=== PATIENT | female | born 1990 | race Caucasian/White ===

== ENCOUNTER 2018-01-03 02:03 | Emergency (ER) | payer MEDICAID, SELFPAY ==
[2018-01-03 02:06] VITALS: BP 157/98; PULSE 92; RESP 16; TEMP 36.7; O2SAT 99
--- NOTE | 2018-01-03 02:15 | ED.GENADUL ---
Disposition Clinical Impression: Traumatic rupture of right ear drum, initial encounter Disposition: HOME Condition: Stable Instructions: Ruptured Eardrum (ED) Additional Instructions: you can take 1000mg tylenol and 600mg ibuprofen every 6 hours for pain as needed follow up with your primary care provider within a week Medical Decision Making - Medical Decision Making Pt here with small right tm rupture likely from blowing nose. She has no findings to suggest underlying infection. ADvised nsaids and tylenol and f/u with pcp and return precautions given - Differential Diagnosis tm rupture, aom, otitis externa History of Present Illness - General Chief complaint: EarProblem Stated complaint: JAW/EAR PAIN Time Seen by Provider: 01/03/18 02:09 Source: patient Mode of arrival: ambulatory Limitations: no limitations - History of Present Illness Initial comments: 27 yo female comes in with right ear pain fora few hours. She states for a day or two she has has clear rhinorrhea and slight dry cough. She states she has been blowing her nose and felt pain in her ears when doing this earlier but then specifically had pain in her right ear. SHe denies swimming or fevers. She has not taken any meds for the pain due to not having meds at home. She has a small tm rupture at the 3 oclock position Complaint: right ear pain Onset/Timin -: hour(s) Improves with: none Worsens with: none - Related Data Levonorgestrel-Ethin Estradiol [Jolessa 0.15 mg-0.03 mg Tablet] 1 cap PO DAILY 05/21/14 Polyethylene Glycol 3350 [Miralax] 17 gm PO DAILY PRN #1 btl 05/21/14 Lisinopril 1 tab PO DAILY 03/28/15 Spironolactone 25 mg PO DAILY 01/03/18 Allergies Allergy/AdvReac Type Severity Reaction Status Date / Time No Known Allergies Allergy Unverified 01/03/18 02:11 Review of Systems Constitutional: denies: chills, fever ENT: ear pain. denies: throat pain Respiratory: denies: shortness of breath Cardiovascular: denies: chest pain Gastrointestinal: denies: abdominal pain, nausea, vomiting Musculoskeletal: denies: back pain Skin: denies: rash Neurological: denies: headache Comment: All other systems reviewed and negative Past Medical History - Past Medical History Medical history: hypertension - Social History Alcohol use: none Drug use: none General Exam - General Limitations: no limitations General appearance: alert, in no apparent distress - Head Head exam: Present: atraumatic - Eye Eye exam: Present: normal apperance, PERRL - ENT ENT exam: Present: normal orophraynx, mucous membranes moist, normal external ear exam, other (see hpi) - Neck Neck exam: Present: normal inspection - Respiratory Respiratory exam: Absent: respiratory distress - Cardiovascular Cardiovascular Exam: Present: regular rate - Extremities Exam Extremities exam: Present: normal inspection. Absent: pedal edema - Neurological Exam Neurological exam: Present: alert, oriented X3 - Psychiatric Psychiatric exam: Present: normal affect Course Vital Signs - 24 hr 01/03/18 02:06 Temperature 98.1 F Pulse 92 H Respiratory 16 Rate Blood Pressure 157/98 Pulse Oximetry 99
[2018-01-03] MEDS: Ibuprofen 600 MG TAB PO (02:19)
[2018-01-03] MEDS: Acetaminophen 500 MG TAB 1000 MG PO (02:19)
== END 2018-01-03 02:22 | disposition home or self-care (01) ==
PROVIDERS: Emergency Provider Emergency Medicine; PCP Internal Medicine
DX: S09.21XA Traumatic rupture of right ear drum, initial encounter (principal); X50.9XXA Other and unspecified overexertion or strenuous movements or postures, initial encounter; I10 Essential (primary) hypertension
CPT/HCPCS: 99282

== ENCOUNTER 2018-03-19 15:09 | Outpatient (REF) | payer MEDICAID, SELFPAY ==
[2018-03-19 21:10] LABS: Iron 74 ug/dL (50-175); Total Iron Binding Capacity 382 ug/dL (250-450); Transferrin Sat 19 % (15-50)
[2018-03-19 21:22] LABS: Ferritin 85 ng/mL (8-388); TSH (W/Ref FT4) 1.56 uIU/mL (0.358-3.74)
[2018-03-19 21:58] LABS: Abs Immature Grans 0.05 k/cumm (0.0-0.09); Absolute Basophil Count 0.05 k/cumm (0.0-0.2); Absolute Eosinophil Count 0.44 k/cumm (0.0-0.7); Absolute Lymphocyte Count 2.68 k/cumm (1.2-3.4); Absolute Monocyte Count 0.59 k/cumm (0.11-0.7); Absolute Neutrophil Count 8.47 k/cumm (1.2-6.7); Basophils % 0.4; Eosinophils % 3.6; HCT 43.2 % (36.0-46.0); HGB 14.6 g/dL (12.0-15.5); Immature Grans % 0.4; Lymphocytes % 21.8; Mean Corp. HGB Concentration 33.8 g/dL (32.0-36.0); Mean Corpuscular Hemoglobin 31.3 pg (27.0-33.0); Mean Corpuscular Volume 92.7 fL (80-95); Mean Platelet Volume 9.3 fL (8.0-11.0); Monocytes % 4.8; Platelet Count 317 x1000/uL (130-400); RBC 4.66 m/cumm (4.00-5.20); RBC Distribution Width 12.4 % (11.7-14.6); White Blood Cell Count 12.28 k/cumm (4.4-10.8)
== END 2018-03-19 15:29 ==
LOC: NCHCN 15:09
PROVIDERS: PCP Internal Medicine; Visit Provider Nurse Practitioner
DX: R53.83 Other fatigue (principal)
CPT/HCPCS: 82728; 83540; 83550; 84443; 85025

== ENCOUNTER 2018-11-19 09:49 | Outpatient (REF) | payer MEDICAID, SELFPAY ==
[2018-11-19 12:01] LABS: Anion Gap 12.4 mmol/L (3-11); BUN 7 mg/dL (7-18); CO2 23.6 mmol/L (21.0-32.0); CREATININE 0.77 mg/dL (0.55-1.02); Calcium 8.8 mg/dL (8.5-10.1); Chloride 106 mmol/L (98-107); Glucose 75 mg/dL (70-100); Potassium 4.1 mmol/L (3.5-5.1); Sodium 142 mmol/L (136-145)
== END 2018-11-19 10:09 ==
LOC: NCHCN 09:49
PROVIDERS: PCP Internal Medicine; Visit Provider Internal Medicine
DX: I10 Essential (primary) hypertension (principal)
CPT/HCPCS: 80048

== ENCOUNTER 2019-03-23 01:51 | Emergency (ER) | payer MEDICAID, SELFPAY ==
[2019-03-23 02:03] VITALS: BP 148/94; PULSE 95; RESP 18; TEMP 36.8; O2SAT 98
--- NOTE | 2019-03-23 02:08 | ED.GENADUL_ITS ---
Discharge Plan Disposition Patient Disposition: HOME Condition: Good Discharge Details Chief Complaint: RashLesion Clinical Impression: Contact dermatitis and eczema Primary Care Provider: Misael Rowell ED Provider: Hank Hernandez Home Meds and New Rx's Prescriptions: New hydrocortisone 1 % cream 1 applic TP TID PRN (Reason: rash) Qty: 14.2 RF: 0 No Action levonorgestrel-ethinyl estrad [Jolessa] 1 EACH tablets,dose pack,3 month 1 cap PO DAILY RF: 0 polyethylene glycol 3350 527 GM powder 17 gm PO DAILY PRN (Reason: Constipation) Qty: 1 RF: 0 lisinopril 10 MG tablet 1 tab PO DAILY RF: 0 spironolactone 25 MG tablet 25 mg PO DAILY RF: 0 Discharge Instructions Instructions: Dermatitis (ED) Additional Instructions: You have a reaction on your skin secondary to them being chronically sweaty in your gloves. Please make sure that for the next 1 to 2 weeks you are not wearing any significant tight fitting or sweaty gloves. Please apply the hydrocortisone cream 3 times daily to the affected areas, in between these dosings make sure to keep your hands well moisturized. If your symptoms do not improve with this treatment please follow-up closely with your primary care provider for potential additional medication management. If you notice any worsening of your symptoms, or any new symptoms such as vomiting, diarrhea, fever, chills, shortness of breath, chest pain, numbness, weakness, or fainting , please return immediately to the emergency department for reevaluation. Please follow up with your primary care provider as soon as possible for reassessment and reevaluation. As always, it was a pleasure participating in your medical care today. Stand Alone Forms: Work Release Referrals: Misael Rowell MD [Primary Care Provider] - Medical Decision Making This is a pleasant 28-year-old female who presents for rash on her hands bilaterally. She works at [employer] and always wears tightfitting gloves which she often profusely sweats and. Over the last few weeks she has noticed well- demarcated erythematous scaly pruritic rash, PCP recommended moisturizer which she has been using which slightly improved her symptoms but now over the last week they have been slightly worsening. Exam demonstrates eczematous-like contact dermatitis rash over the hands, no other lesions, no other locations. No oral lesions. Signs and symptoms appear consistent for an eczematous-like dermatitis. Likely secondary to her working scenario. In addition to moisturizer we will recommend topical steroid 1% hydrocortisone cream 3 times daily, continue moisturizer, as well as a work note for the next 2 weeks to avoid any tight fitting gloves which causes continued sweating. I have extensively reviewed the treatment plan and discharge instructions with the patient. I have addressed all patient concerns at this time. The patient was made aware of what symptoms to monitor for that would warrant a return to the emergency department. Discussed the plan with the patient, they demonstrate verbal understanding and agreement with our assessment and plan at this time. HPI General Date/Time Provider Initiated Documentation: 03/23/19 01:56 . HPI Narrative: This is a pleasant 28-year-old female who presents today for evaluation of rash on her hands. She works at [employer], and wears gloves every day. About 2 weeks ago she noticed small rash on her hands, she was seen by primary care provider who recommended moisturizing ointment. She has been applying this and has noticed some improvement, however over the last week her symptoms have continued and actually slightly worsened. She describes lesions on her hands is notably pruritic. The gloves that she is using are latex free nitrile based. She denies any using any new soaps or lotions. She denies any oral lesions or lesions anywhere else aside for her hands where her gloves are. She has no other complaints at this time. No other modifying factors. Related Data Home Medications Medication Instructions Recorded Confirmed levonorgestrel-ethinyl estrad 1 cap PO DAILY 05/21/14 01/03/18 [Johannaha] polyethylene glycol 3350 17 gm PO DAILY PRN #1 btl 05/21/14 01/03/18 lisinopril 1 tab PO DAILY 03/28/15 01/03/18 spironolactone 25 mg PO DAILY 01/03/18 01/03/18 hydrocortisone 1 applic TP TID PRN #14.2 gm 03/23/19 Previous Rx's Medication Instructions Recorded polyethylene glycol 3350 17 gm PO DAILY PRN #1 btl 05/21/14 hydrocortisone 1 applic TP TID PRN #14.2 gm 03/23/19 Allergies Allergy/AdvReac Type Severity Reaction Status Date / Time adhesive Allergy Mild Skin Rash Unverified 03/23/19 02:11 Review of Systems All systems reviewed & are unremarkable except as noted in HPI and below PFSH Social History Smoking/Tobacco Use Status: Former Tobacco Use Drug use: Never Do you feel safe in your relationship?: Yes Exam Narrative Exam Narrative: 1.Const: Well-nourished, Well-developed, appearing stated age 2.Eyes: PERRL, no conjunctival injection, and symmetrical lids. 3.ENT: Atraumatic external nose and ears. Moist MM. Neck: Symmetric, trachea midline, No thyromegaly. 4.CVS: +S1/S2, No murmurs or gallops. Peripheral pulses 2+ and equal in all extremities. Brisk capillary refill in all extremities. 5.RESP: Unlabored respiratory effort. Clear to auscultation bilaterally. No wheezes rales or rhonchi 6.GI: Soft, Nontender/Nondistended, No hepatosplenomegaly. No guarding or rebound. 7.MSK: Normocephalic/Atraumatic, Extremities w/o deformity or ttp No cyanosis or clubbing, Normal movement of all extremities 8.Skin: Warm, Dry. Bilateral hands in the region where her gloves are demonstrate small erythematous, dry, slightly flaky lesions that are well demarcated, slightly raised, patch-like. No bleeding. Negative Nikolsky sign. Signs and symptoms appear consistent with eczematous-like contact dermatitis. Negative Nikolsky sign. No large vesicles or bulla. No palpable purpura. No oral lesions. No mucosal lesions. No evidence of severe cellulitis. No evidence of vaccine preventable rash. 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 Sensation grossly intact, no focal neurologic deficits. 10.Psych: (AAO) x3. Appropriate mood and affect
== END 2019-03-23 02:15 | disposition home or self-care (01) ==
LOC: ER 02:17
PROVIDERS: Emergency Provider Student in an Organized Health Care Education/Training Program; PCP Internal Medicine
DX: L25.9 Unspecified contact dermatitis, unspecified cause (principal)
CPT/HCPCS: 99283

== ENCOUNTER 2020-10-19 09:38 | Outpatient (REF) | payer MEDICAID, SELFPAY ==
[2020-10-19 12:51] LABS: BUN 10 mg/dL (7-18); CREATININE 0.9 mg/dL (0.55-1.02); Calcium 8.8 mg/dL (8.5-10.1); Chloride 105 mmol/L (98-107); Glucose 75 mg/dL (74-106); Potassium 3.8 mmol/L (3.5-5.1); Sodium 142 mmol/L (136-145)
== END 2020-10-19 09:39 | disposition home or self-care (01) ==
LOC: NCHCN 09:38
PROVIDERS: PCP Internal Medicine; Visit Provider Internal Medicine
DX: I10 Essential (primary) hypertension (principal); F41.8 Other specified anxiety disorders
CPT/HCPCS: 80048

== ENCOUNTER 2021-07-08 06:15 | Emergency (ER) | payer MEDICAID, SELFPAY | END 2021-07-08 07:36 | disposition home or self-care (01) | PROVIDERS: Emergency Provider Emergency Medicine; PCP Internal Medicine | DX: K08.89 Other specified disorders of teeth and supporting structures (principal) | CPT/HCPCS: 99283 ==

== ENCOUNTER 2021-12-06 17:20 | Emergency (ER) | payer MEDICAID, SELFPAY ==
[2021-12-06] VITALS (18 sets, daily range): BP systolic 144–183; BP diastolic 81–110; PULSE 80–96; RESP 16–18; TEMP 36.6–37.2; O2SAT 95–99
[2021-12-06 18:44] LABS: Abs Immature Grans 0.04 10^3/uL (0.0-0.06); Absolute Basophil Count 0.05 10^3/uL (0.0-0.2); Absolute Eosinophil Count 0.12 10^3/uL (0.0-0.7); Absolute Lymphocyte Count 4.05 10^3/uL (1.2-3.4); Absolute Monocyte Count 0.58 10^3/uL (0.1-0.8); Basophils % 0.4; HCT 43.1 % (36.0-46.0); Immature Grans % 0.3; Lymphocytes % 34.1; MCH 31.8 pg (27.0-33.0); MCHC 34.8 % (32.0-36.0); MCV 92 fL (80-95); Monocytes % 4.9; Neutrophils % 59.3; Platelet Count 343 10^3/uL (130-400); RBC 4.71 10^6/uL (3.93-5.22); RDW 11.8 % (11.7-14.6); RDW-SD 39.6 fL; WBC 11.87 10^3/uL (4.4-10.8)
[2021-12-06 18:45] LABS: Absolute Neutrophil Count 7.04 10^3/uL (1.2-6.7)
[2021-12-06 18:58] LABS: INR 1.2 (0.9-1.1); PTT Activated 30.2 sec (21.0-27.5); Prothrombin Time 11.8 sec (9.3-11.0)
[2021-12-06 19:00] LABS: ALT 29 U/L (14-59); AST 24 U/L (15-37); Albumin 3.6 g/dL (3.4-5.0); Alkaline Phosphatase 81 U/L (46-116); BUN 10 mg/dL (7-18); Bilirubin, Total 0.4 mg/dL (0.2-1.0); Calcium 9.2 mg/dL (8.5-10.1); Chloride 104 mmol/L (98-107); Glucose 115 mg/dL (74-106); Potassium 3.3 mmol/L (3.5-5.1); Sodium 139 mmol/L (136-145); Total Protein 7.4 g/dL (6.4-8.2)
[2021-12-06] MEDS: Potassium Chloride 20 MEQ TABCR PO (19:21)
--- NOTE | 2021-12-06 19:40 | ED.GENADUL_ITS ---
Discharge Plan Disposition Patient Disposition: HOME Condition: Stable Discharge Details Clinical Impression: Rash, Tongue lesion, Cough, Hypertension, Hypokalemia Primary Care Provider: Misael Rowell ED Provider: Bobo Jeffers Home Meds and New Rx's Prescriptions: Continued levonorgestrel-ethinyl estrad [Jolessa] 1 EACH tablets,dose pack,3 month 1 cap PO DAILY polyethylene glycol 3350 527 GM powder 17 gm PO DAILY PRN (Reason: Constipation) Qty: 1 0RF lisinopril 10 MG tablet 1 tab PO DAILY spironolactone 25 MG tablet 25 mg PO DAILY hydrocortisone 1 % cream 1 applic TP TID PRN (Reason: rash) Qty: 14.2 0RF bupropion HCl 300 mg tablet extended release 24 hr 300 mg PO DAILY Label Comments: TAKE 1 TABLET BY MOUTH DAILY Discontinued amoxicillin 500 mg tablet 500 mg PO BID Qty: 20 0RF Discharge Instructions Instructions: Acute Rash (ED) Additional Instructions: Please monitor your tongue lesion and have your primary care physician reassess this. If this lesion does not improve over the next week, additional diagnostic testing may be necessary. Your potassium today was slightly below normal. You were given potassium supplement K-dur 20meq. Please be sure to discuss this with your doctor. Please use sensitive skin detergents and soaps and avoid fragrances. Take Benadryl 25-50mg every 8 hours as needed for itchy rash over the next 3 days. Follow-up with your primary care physician as scheduled tomorrow. A COVID test was performed today out of an abundance of precaution and result is pending at time of discharge. Your blood pressure was elevated today. You acknowledge difficulty maintaining compliance with antihypertensive medication due to difficulty with refill prescription. Please discuss this with your doctor and be sure to take medication as prescribed. Return to the ER immediately for any worsening or new concerning symptoms. Referrals: Abiodun Jama MD [ [facility] STAFF PHYSICIAN] - Discharge Data Discharge Date/Time-TO BE ENTERED AT DEPARTURE: 12/06/21 20:02 Medical Decision Making 31-year-old female presents today with itchy, blotchy rash on her shoulders, upper chest and upper extremities as well as new tongue lesion since last night, recent dry cough. Patient is hypertensive likely secondary to noncompliance with lisinopril. She is saturating well in no respiratory distress with clear lungs. Airway intact and no oropharyngeal edema. Screening labs reviewed and mild leukocytosis noted. Patient has mild elevation of coags. Normal LFTs. Potassium is low at 3.3. Potassium chloride 20 mill equivalents p.o. was given. Concern for likely viral illness. I think COVID is unlikely given symptomatology but will send COVID testing. All results were discussed with the patient. On reassessment rash had resolved and patient was feeling better. Plan will be for discharge with outpatient follow-up. Usual customary discharge instructions were reviewed with the patient. Patient was advised to monitor her tongue lesion and if it does not improve over the next 1 week encouraged to discuss with her primary care physician for additional testing. HPI General Mode of arrival: ambulatory . Date/Time Provider Initiated Documentation: 12/06/21 17:37 . Limitations to Documentation: no limitations . Information obtained by: patient . HPI Narrative: 31-year-old female with history of anxiety, depression, hypertension presents today with chief complaint of rash. Patient notes itchy, blotchy rash on her shoulders, upper chest and upper extremities. Rash is moderate. No modifiers. Patient took Benadryl 50 mg at 1640. Patient denies known allergen or new exposure. Patient also notes new tongue lesion since last night, recent dry cough. Related Data Home Medications Medication Instructions Recorded Confirmed levonorgestrel 0.15 mg-ethinyl 1 cap PO DAILY 05/21/14 12/06/21 estradiol 30 mcg tablets,3 mos pack(91) (Charmaine) polyethylene glycol 3350 17 17 gm PO DAILY PRN Constipation ##1 05/21/14 12/06/21 gram/dose oral powder lisinopril 10 mg tablet 1 tab PO DAILY 03/28/15 12/06/21 spironolactone 25 mg tablet 25 mg PO DAILY 01/03/18 12/06/21 hydrocortisone 1 % topical cream 1 applic topical TID PRN rash 03/23/19 12/06/21 #14.2 grams bupropion HCl 300 mg 24 hr tablet, 300 mg PO DAILY 12/06/21 12/06/21 extended release Previous Rx's Medication Instructions Recorded polyethylene glycol 3350 17 17 gm PO DAILY PRN Constipation ##1 05/21/14 gram/dose oral powder hydrocortisone 1 % topical cream 1 applic topical TID PRN rash 03/23/19 #14.2 grams Allergies Allergy/AdvReac Type Severity Reaction Status Date / Time adhesive Allergy Mild Skin Rash Unverified 12/06/21 17:32 General Stated Complaint: Allergic MAYUR: 3 Review of Systems Constitutional Constitutional: Denies fever(s) ENT Ears, Nose, Mouth, and Throat: Reports as per HPI Integumentary/Breasts Skin/Breast: Reports as per HPI PFSH All Active Problems Rash (Acute) Tongue lesion (Acute) Cough (Acute) Hypertension (Chronic) Hypokalemia (Acute) Social History Smoking/Tobacco Use Status: Former Tobacco Use Smoking risk assessment performed?: Yes Alcohol Intake: current Alcohol Intake frequency: holidays/special occasions only Drug use: Occasionally Substance use type: marijuana Do you feel safe at home: Yes Do you feel safe in your relationship?: Yes Exam Const General: cooperative and no acute distress HENMT Mouth: moist mucous membranes Other: Tip of the tongue on the left has a small 1cm raised mucosal lesion Eyes Conjunctivae: normal conjunctivae Sclera: normal sclerae Neck Neck: trachea midline and supple Resp Auscultation: clear to auscultation bilaterally, no rales, no rhonchi and no wheezes Cardio Rate: regular rate and not tachycardic Rhythm: regular rhythm GI Palpation: soft, not firm, no guarding, no masses, not rigid and nontender Skin Rashes: rashes noted (Blotchy red rash on shoulders, upper chest and upper extremities) Neuro General: patient alert, patient awake and tone normal Extrem General: no edema Psych Appearance: grossly normal Mental Status: mental status grossly normal Speech and Movement: speech and movement normal Course Vital Signs Vital signs: Vital Signs Temperature 36.6 C 12/06/21 17:27 Pulse 94 H 12/06/21 17:27 Respiratory Rate 18 12/06/21 17:27 Blood Pressure 183/110 H 12/06/21 17:27 Pulse Oximetry 98 12/06/21 17:27 Temperature 37.2 C 12/06/21 18:04 Temperature Source Oral 12/06/21 18:04 Pulse 81 12/06/21 18:31 Respiratory Rate 16 12/06/21 18:04 Respiratory Effort Non-Labored 12/06/21 17:44 Respiratory Pattern Normal 12/06/21 17:44 Blood Pressure 153/96 H 12/06/21 18:31 Blood Pressure Mean 106 12/06/21 18:31 Blood Pressure Position Sitting 12/06/21 17:27 Pulse Oximetry 96 12/06/21 18:31 Oxygen Delivery Method Room Air 12/06/21 18:04 Oxygen Flow Rate 0 12/06/21 18:04 Pain Level 0 12/06/21 18:04 Lab/Test Results Lab/Test Results: Laboratory Tests Range/Units 12/06/21 12/06/21 12/06/21 18:25 18:25 18:25 WBC (4.4-10.8) 10^3/uL 11.87 H RBC (3.93-5.22) 10^6/uL 4.71 Hgb (11.2-15.7) g/dL 15.0 Hct (36.0-46.0) % 43.1 MCV (80-95) fL 92 MCH (27.0-33.0) pg 31.8 MCHC (32.0-36.0) % 34.8 RDW (11.7-14.6) % 11.8 Plt Count (130-400) 10^3/uL 343 MPV (8.0-11.0) fL 9.0 Immature Gran % 0.3 Neutrophils % 59.3 Lymphocytes % 34.1 Monocytes % 4.9 Eosinophils % 1.0 Basophils % 0.4 Nucleated RBC % (0.0-0.3) % 0.0 Absolute Neutrophils (1.2-6.7) 10^3/uL 7.04 H Absolute Lymphocytes (1.2-3.4) 10^3/uL 4.05 H Absolute Monocytes (0.1-0.8) 10^3/uL 0.58 Absolute Eosinophils (0.0-0.7) 10^3/uL 0.12 Absolute Basophils (0.0-0.2) 10^3/uL 0.05 PT (9.3-11.0) sec 11.8 H INR (0.9-1.1) 1.2 H APTT (21.0-27.5) sec 30.2 H Sodium (136-145) mmol/L 139 Potassium (3.5-5.1) mmol/L 3.3 L Chloride (98-107) mmol/L 104 Carbon Dioxide (21.0-32.0) mmol/L 25.0 Anion Gap (3-11) mmol/L 10.0 BUN (7-18) mg/dL 10 Creatinine (0.55-1.02) mg/dL 1.0 Estimated GFR/1.73 m2 (mL/min/1.73m2) >= 60.00 Glucose (74-106) mg/dL 115 H Calcium (8.5-10.1) mg/dL 9.2 Total Bilirubin (0.2-1.0) mg/dL 0.4 AST (15-37) U/L 24 ALT (14-59) U/L 29 Alkaline Phosphatase (46-116) U/L 81 Total Protein (6.4-8.2) g/dL 7.4 Albumin (3.4-5.0) g/dL 3.6
[2021-12-06 20:02] LABS: Source Nasal/Nares
[2021-12-06 23:02] LABS: COVID-19 PCR Negative (Negative)
== END 2021-12-06 20:02 | disposition home or self-care (01) ==
PROVIDERS: Emergency Provider Student in an Organized Health Care Education/Training Program; PCP Internal Medicine
DX: R21 Rash and other nonspecific skin eruption (principal); K14.9 Disease of tongue, unspecified; I10 Essential (primary) hypertension; E87.6 Hypokalemia; R05.9 Cough, unspecified; D72.829 Elevated white blood cell count, unspecified; Z20.822 Contact with and (suspected) exposure to COVID-19; Z87.891 Personal history of nicotine dependence
CPT/HCPCS: 80053; 87635; 99283; 85025; 85610; 85730; 99284

== ENCOUNTER 2022-01-28 09:05 | Outpatient (REF) | payer MEDICAID, SELFPAY ==
[2022-01-28 19:12] LABS: Calculated LDL 137 mg/dL (<100); Cholesterol 212 mg/dL (<200); Glucose 81 mg/dL (74-106); HDL Cholesterol 60 mg/dL (40-60); Triglyceride 75 mg/dL (<150)
== END 2022-01-28 09:06 | disposition home or self-care (01) ==
LOC: NCHCN 09:05
PROVIDERS: PCP Internal Medicine; Visit Provider Family Medicine
DX: I10 Essential (primary) hypertension (principal)
CPT/HCPCS: 80061; 82947

== ENCOUNTER 2023-01-30 21:20 | Emergency (ER) | payer MEDICAID, SELFPAY ==
[2023-01-30 21:27] VITALS: BP 145/89; PULSE 88; RESP 16; TEMP 37; O2SAT 98
--- NOTE | 2023-01-30 21:45 | ED.GENADUL_ITS ---
Discharge Plan Disposition Patient Disposition: Home Discharge Details Clinical Impression: Superficial laceration of hand Primary Care Provider: Abiodun Jama ED Provider: Gatito Martin Home Meds and New Rx's Prescriptions: No Action levonorgestrel-ethinyl estrad [Jolessa] 1 EACH tablets,dose pack,3 month 1 cap PO DAILY polyethylene glycol 3350 527 GM powder 17 gm PO DAILY PRN (Reason: Constipation) Qty: 1 0RF lisinopril 10 MG tablet 1 tab PO DAILY spironolactone 25 MG tablet 25 mg PO DAILY hydrocortisone 1 % cream 1 applic TP TID PRN (Reason: rash) Qty: 14.2 0RF bupropion HCl 300 mg tablet extended release 24 hr 300 mg PO DAILY Patient Comments: TAKE 1 TABLET BY MOUTH DAILY Discharge Instructions Instructions: Acute Wound Care (ED) Additional Instructions: Watch for any signs of infection and return immediately to the emergency department if these occur. Otherwise keep wound clean and dry. Follow-up with primary care provider as needed for reassessment Referrals: Abiodun Jama MD [Primary Care Provider] - Medical Decision Making Patient presenting to the emergency department for chief complaint of finger laceration. Patient reports while she was at work she caught her hand on a fire. She went through 3 Band-Aids due to significant continued bleeding throughout the evening. Patient denies any other injury or trauma. Physical exam shows a superficial laceration to the palmar aspect of the left thumb. Exam is otherwise unremarkable. Laceration does not need repair and discussed with patient acute wound care. Patient's tetanus is up-to-date for superficial injury. After discussion of diagnosis and plan of care patient has no further needs, questions, or concerns and states clear understanding to return to the emergency department for any worsening symptoms. This documentation was generated using [employer] dictation system, please disregard any oddities of phrase or misspellings. HPI General Mode of arrival: ambulatory . Date/Time Provider Initiated Documentation: 01/30/23 21:45 . Limitations to Documentation: no limitations . Information obtained by: patient and RN notes reviewed . History of Present Illness 32 year old F presents to the emergency department with the chief complaint of Left thumb laceration, described as mild, with intensity rated at 1. Quality is described as sharp, and is localized to the left and upper extremity. Patient started experiencing this hour(s) (6) and it has been constant. No relieving factors improve symptom(s), No exacerbating factors reported . Patient notes no other symptoms.. Patient did receive the following treatments prior to arrival, none Related Data Home Medications Medication Instructions Recorded Confirmed levonorgestrel 0.15 mg-ethinyl 1 cap PO DAILY 05/21/14 01/30/23 estradiol 30 mcg tablets,3 mos pack(91) (Charmaine) polyethylene glycol 3350 17 17 gm PO DAILY PRN Constipation ##1 05/21/14 01/30/23 gram/dose oral powder lisinopril 10 mg tablet 1 tab PO DAILY 03/28/15 01/30/23 spironolactone 25 mg tablet 25 mg PO DAILY 01/03/18 01/30/23 hydrocortisone 1 % topical cream 1 applic topical TID PRN rash 03/23/19 01/30/23 #14.2 grams bupropion HCl 300 mg 24 hr tablet, 300 mg PO DAILY 12/06/21 01/30/23 extended release Previous Rx's Medication Instructions Recorded polyethylene glycol 3350 17 17 gm PO DAILY PRN Constipation ##1 05/21/14 gram/dose oral powder hydrocortisone 1 % topical cream 1 applic topical TID PRN rash 03/23/19 #14.2 grams Allergies Allergy/AdvReac Type Severity Reaction Status Date / Time adhesive Allergy Mild Skin Rash Unverified 01/30/23 21:32 General Stated Complaint: Laceration MAYUR: 5 Review of Systems Musculoskeletal Musculoskeletal: Denies arthralgias, Denies joint swelling, Denies limited range of motion, Denies numbness, Denies radiating pain into limb and Denies tingling Integumentary/Breasts Skin/Breast: Reports as per HPI, Denies erythema and Reports wounds Neurologic Neurologic: Denies numbness and Denies tingling PFSH All Active Problems (Updated 01/30/23 @ 21:52 by Gatito Martin NP) Superficial laceration of hand (Acute) Social History Smoking/Tobacco Use Status: Former Tobacco Use Smoking risk assessment performed?: Yes Alcohol Intake: current Alcohol Intake frequency: holidays/special occasions only Drug use: Occasionally Substance use type: marijuana Do you feel safe at home: Yes Do you feel safe in your relationship?: Yes Exam Const General: cooperative, no acute distress and not ill appearing Orientation: alert, awake and oriented x3 HENMT Mouth: moist mucous membranes Resp Effort & Inspection: normal respiratory effort, able to speak in complete sentences and no respiratory distress Neuro General: patient alert, patient awake, patient oriented x3, moves all ext remities and no focal motor deficits Sensory Exam: no sensory deficits noted Extrem General: normal exam except as noted Left upper extremity: hand Details: laceration (7mm) thumb palmar aspect proximal Details: linear, superficial, with motor nerve function intact and with sensation intact Course Vital Signs Vital signs: Vital Signs Temperature 37.0 C 01/30/23 21:27 Pulse 88 01/30/23 21:27 Respiratory Rate 16 01/30/23 21:27 Blood Pressure 145/89 H 01/30/23 21:27 Pulse Oximetry 98 01/30/23 21:27 Temperature 37.0 C 01/30/23 21:27 Pulse 88 01/30/23 21:27 Respiratory Rate 16 01/30/23 21:27 Respiratory Effort Normal 01/30/23 21:31 Blood Pressure 145/89 H 01/30/23 21:27 Pulse Oximetry 98 01/30/23 21:27 Oxygen Delivery Method Room Air 01/30/23 21:27 Oxygen Flow Rate 0 01/30/23 21:27 Pain Level 5 01/30/23 21:27
--- NOTE | 2023-01-30 21:51 | NUR.NOTE ---
Accessed [facility] medical records for tetanus status.Nursing Note:
== END 2023-01-30 21:56 | disposition home or self-care (01) ==
PROVIDERS: Emergency Provider Nurse Practitioner Family; PCP Family Medicine
DX: S61.012A Laceration without foreign body of left thumb without damage to nail, initial encounter (principal); W26.8XXA Contact with other sharp object(s), not elsewhere classified, initial encounter; Y93.G1 Activity, food preparation and clean up; Y92.511 Restaurant or cafe as the place of occurrence of the external cause; Y99.0 Civilian activity done for income or pay
CPT/HCPCS: 99282

== ENCOUNTER 2023-06-03 00:38 | Emergency (ER) | payer OTHER, SELFPAY ==
[2023-06-03] VITALS (7 sets, daily range): BP systolic 149–179; BP diastolic 99–118; PULSE 97–115; RESP 18–23; TEMP 35.9; O2SAT 99–100
--- NOTE | 2023-06-03 00:30 | RT.EKG_ITS ---
APPROVED REPORT Exam: Resting ECG Reason for Exam: yuni Patient Location: E HR:104 bpm ECG Measurements Heart Rate 104 AXIS MO 152 P 75 QRSd 89 QRS 55 QT 343 T 24 QTc 450 Conclusion Sinus tachycardia...rate> 99 No pattern injury ischemia noted
--- NOTE | 2023-06-03 00:56 | DI.CT_ITS ---
Exam(s) CT HEAD CERVICAL SPINE WO EXAM: CT HEAD CERVICAL SPINE WO CLINICAL HISTORY: head injury, fall, syncope. TECHNIQUE: Imaging Protocol: Axial computed tomography images with coronal and sagittal reformatted images were created and reviewed COMPARISON: No exams were available for comparison FINDINGS: CT Head: Ventricles and Extra axial spaces: Normal in size and morphology for the patient's age. Hemorrhage: None. Cerebral parenchyma: There is a normal pereyra-white matter differentiation. Midline shift: None. Brainstem/Cerebellum: Normal. Calvarium: Normal. Visualized Paranasal sinuses/Mastoids: There is a mucous retention cyst in the right maxillary sinus. Soft Tissues: There is a subcutaneous hematoma overlying the right apex of the skull. CT Cervical Spine: Bones: No acute fracture or subluxation. There is mild reversal of the normal cervical lordosis. Thi s may be due to muscle spasm or patient positioning. Soft Tissues: There is a calcified nodule in the left thyroid gland. Lung Apices: Clear. IMPRESSION: 1. No acute intracranial process. 2. The left-sided scalp hematoma at the apex of the skull. 3. No acute fracture or subluxation in the cervical spine. RADIATION DOSE DELIVERED: 1,428.82mGy.cm Total DLP DATA REPOSITORY: All CT scans at this facility are submitted to the National Radiology Data Registry (NRDR) Dose Index Registry (DIR) with the [employer] ([employer]). RADIATION OPTIMIZATION: All CT scans at this facility use at least one of these dose optimization te chniques: automated exposure control; mA and/or kV adjustment per patient size (includes targeted exa ms where dose is matched to clinical indication); or iterative reconstruction.
[2023-06-03 01:08] LABS: Abs Immature Grans 0.04 10^3/uL (0.0-0.06); Absolute Basophil Count 0.07 10^3/uL (0.0-0.2); Absolute Eosinophil Count 0.08 10^3/uL (0.0-0.7); Absolute Lymphocyte Count 4.09 10^3/uL (1.2-3.4); Absolute Monocyte Count 0.51 10^3/uL (0.1-0.8); Basophils % 0.6; Eosinophils % 0.7; HCT 42.1 % (36.0-46.0); HGB 13.9 g/dL (11.2-15.7); Immature Grans % 0.3; Lymphocytes % 34.7; MCH 30.9 pg (27.0-33.0); MCV 94 fL (80-95); MPV 8.5 fL (8.0-11.0); Monocytes % 4.3; Neutrophils % 59.4; Platelet Count 316 10^3/uL (130-400); RDW 12.1 % (11.7-14.6); RDW-SD 42.5 fL; WBC 11.78 10^3/uL (4.4-10.8)
[2023-06-03 01:17] LABS: Bilirubin Negative (Negative); Blood Negative (Negative); Clarity Clear (Clear); Glucose Negative (Negative); Ketones Negative (Negative); Leukocyte Esterase Negative (Negative); Nitrite Negative (Negative); Specific Gravity >= 1.030 (1.005-1.025); Urobilinogen 0.2 mg/dL (Up to 0.2)
[2023-06-03 01:19] LABS: Anion Gap 13.6 mmol/L (3-11); BUN 13 mg/dL (7-18); CO2 20.4 mmol/L (21.0-32.0); CREATININE 0.9 mg/dL (0.55-1.02); Calcium 9.4 mg/dL (8.5-10.1); Chloride 104 mmol/L (98-107); Estimated GFR 87.65 (mL/min/1.73m2); Glucose 84 mg/dL (74-106); Sodium 138 mmol/L (136-145)
[2023-06-03 01:20] LABS: HCG Qual (Serum) Negative
[2023-06-03] MEDS: Normal Saline 1,000 ML 1000 ML IV ×2 (01:21→02:35)
[2023-06-03 01:24] LABS: Bacteria Few HPF (Negative); C & S Indicated? No; Casts 0-2 Hyaline LPF (Negative); Crystals Negative HPF (Negative); Epithelial Cells Moderate HPF (Negative); Mucus Negative (Negative); RBC Negative HPF (0-2); WBC Negative HPF (0-5)
[2023-06-03 01:27] LABS: Troponin I < 50 ng/L (<or=60)
--- NOTE | 2023-06-03 01:54 | NUR.NOTE ---
Pt placed on care management referral list for new onset sezuires to be seen within [address] Ortega Nursing Note:
--- NOTE | 2023-06-03 02:04 | DI.VRAD_ITS ---
PROCEDURE INFORMATION: Exam: CT Head Without Contrast Exam date and time: 06/03/2023 1:44 AM Age: 32 years old Clinical indication: Syncope and collapse; Additional info: Head / neck trauma, fall, loc, syncope TECHNIQUE: Imaging protocol: Computed tomography of the head without contrast. COMPARISON: No relevant prior studies available. FINDINGS: Brain: Normal. No hemorrhage. Unremarkable white matter. No mass effect. Cerebral ventricles: No ventriculomegaly. Paranasal sinuses: Visualized sinuses are unremarkable. No fluid levels. Mastoid air cells: Visualized mastoid air cells are well aerated. Nasal cavity: Rightward nasal septal spur. Bones/joints: Unremarkable. No acute fracture. Soft tissues: Small left parietal scalp hematoma. IMPRESSION: No acute fracture or intracranial hemorrhage. PROCEDURE INFORMATION: Exam: CT Cervical Spine Without Contrast Exam date and time: 06/03/2023 1:44 AM Age: 32 years old Clinical indication: Syncope and collapse; Additional info: Head / neck trauma, fall, loc, syncope TECHNIQUE: Imaging protocol: Computed tomography of the cervical spine without contrast. COMPARISON: No relevant prior studies available. FINDINGS: Bones/joints: Slight cervical dextroscoliosis. Reversal of the normal cervical lordosis, possibly due to muscle spasm. No acute fracture or dislocation. Lungs: Lung apices are normal. Soft tissues: Unremarkable. IMPRESSION: No acute fracture. Dictated and Authenticated by: Gopal Castano MD. Ordering:FALGUNI Melendez MD
--- NOTE | 2023-06-03 02:39 | W.ED.GENAD ---
HPI General Stated Complaint: Seizure MAYUR: 3 Date/Time Provider Initiated Documentation: 06/03/23 00:56. HPI Narrative: The patient is a 32-year-old female, who presents to the emergency department after having a witnessed syncopal episode tonight at work in which she fell backwards and struck her head on the floor. After she fell backwards the patient had generalized shaking, seizure-like activity which took approximately 30 to 60 seconds to fully resolve. The patient tells me that she felt quite nauseated and dizzy shortly before the event. She does not have any recollection of the events immediately after the syncopal episode. On arrival to the emergency room she reports feeling fatigued and nauseated. She denies any recent illnesses such as coughs, colds, fevers, chills, nausea, vomiting, or constipation. The patient did describe symptoms of diarrhea but when asked what this meant, she describes having maximally 3 bowel movements a day which are usually formed or are formed with some liquid at the end. The patient tells me that she did not eat much food today, only a small amount of macaroni and cheese around lunchtime. She also tells me that she did not have any liquids to drink tonight before going to work or while at work. The patient denies any drug or alcohol use tonight. Related Data Home Medications Medication Instructions Recorded Confirmed levonorgestrel 0.15 mg-ethinyl 1 cap PO DAILY 05/21/14 01/30/23 estradiol 30 mcg tablets,3 mos pack(91) (Charmaine) polyethylene glycol 3350 17 17 gm PO DAILY PRN Constipation ##1 05/21/14 01/30/23 gram/dose oral powder lisinopril 10 mg tablet 1 tab PO DAILY 03/28/15 01/30/23 spironolactone 25 mg tablet 25 mg PO DAILY 01/03/18 01/30/23 hydrocortisone 1 % topical cream 1 applic topical TID PRN rash 03/23/19 01/30/23 #14.2 grams bupropion HCl 300 mg 24 hr tablet, 300 mg PO DAILY 12/06/21 01/30/23 extended release Previous Rx's Medication Instructions Recorded polyethylene glycol 3350 17 17 gm PO DAILY PRN Constipation ##1 05/21/14 gram/dose oral powder hydrocortisone 1 % topical cream 1 applic topical TID PRN rash 03/23/19 #14.2 grams Allergies Allergy/AdvReac Type Severity Reaction Status Date / Time adhesive Allergy Mild Skin Rash Unverified 01/30/23 21:32 PFSH All Active Problems (Updated 06/03/23 @ 03:29 by Al Shipley MD) Syncope and collapse (Acute) Exposure to excessive heat of man-made origin as cause of accidental injury (Acute) Hematoma of occipital region of scalp (Acute) Acute dehydration (Acute) Observed seizure-like activity (Acute) Social History Smoking/Tobacco Use Status: Former Tobacco Use Smoking risk assessment performed?: Yes Alcohol Intake: current Alcohol Intake frequency: holidays/special occasions only Drug use: Occasionally Substance use type: marijuana Do you feel safe at home: Yes Do you feel safe in your relationship?: Yes Exam HENMT Other: The visualized portions of the patient's nose, nasopharynx, mouth, and internal oral mucosa appear normal to generalized inspection. There is bilateral lateral tongue bruising and a bite to the distal tip of the tongue which would be potentially consistent with seizure activity. There is a 4 x 4 x 3 cm hematoma on the left occipital vertex with a small overlying superficial laceration measuring less than a centimeter with minimal active bleeding. Eyes Other: The patient has equal bilateral ocular movements with normal conjugated gaze. There is no nystagmus, either vertical or horizontal. Neck Other: The patient spontaneously moves her neck in multiple directions without any difficulty, there is no pain to palpation of the posterior spinous process. Resp Other: Equal bilateral breath sounds which are clear to auscultation bilaterally. Cardio Other: There is a normal rate and rhythm with a normal S1 and S2 appreciated on auscultation. GI Other: Abdomen is soft and nontender with normal bowel sounds. Neuro Other: The patient has no motor or sensory deficits on examination. The cranial nerves are intact. There is no current postictal period or confusion present. The patient has normal clear speech and is articulating normally. She is oriented to person, place, and time. Course Vital Signs Vital signs: Vital Signs Temperature 35.9 C L 06/03/23 00:40 Pulse 115 H 06/03/23 00:40 Respiratory Rate 18 06/03/23 00:40 Blood Pressure 149/99 H 06/03/23 00:40 Pulse Oximetry 99 01/06/24 00:40 Temperature 35.9 C L 06/03/23 00:40 Temperature Source Tympanic 06/03/23 00:40 Pulse 105 H 06/03/23 02:05 Respiratory Rate 18 06/03/23 02:05 Respiratory Effort Normal, Non-Labored 06/03/23 00:44 Respiratory Depth Normal 06/03/23 00:44 Respiratory Pattern Normal 06/03/23 00:44 Blood Pressure 149/99 H 06/03/23 00:40 Pulse Oximetry 99 06/03/23 00:40 Oxygen Delivery Method Room Air 06/03/23 00:40 Oxygen Flow Rate 0 06/03/23 00:40 Pain Level 7 06/03/23 00:40 Lab/Test Results Lab/Test Results: Laboratory Tests Range/Units 06/03/23 06/03/23 00:50 01:10 WBC (4.4-10.8) 10^3/uL 11.78 H RBC (3.93-5.22) 10^6/uL 4.50 Hgb (11.2-15.7) g/dL 13.9 Hct (36.0-46.0) % 42.1 MCV (80-95) fL 94 MCH (27.0-33.0) pg 30.9 MCHC (32.0-36.0) % 33.0 RDW (11.7-14.6) % 12.1 Plt Count (130-400) 10^3/uL 316 MPV (8.0-11.0) fL 8.5 Immature Gran % 0.3 Neutrophils % 59.4 Lymphocytes % 34.7 Monocytes % 4.3 Eosinophils % 0.7 Basophils % 0.6 Nucleated RBC % (0.0-0.3) % 0.0 Absolute Neutrophils (1.2-6.7) 10^3/uL 7.00 H Absolute Lymphocytes (1.2-3.4) 10^3/uL 4.09 H Absolute Monocytes (0.1-0.8) 10^3/uL 0.51 Absolute Eosinophils (0.0-0.7) 10^3/uL 0.08 Absolute Basophils (0.0-0.2) 10^3/uL 0.07 VBG Lactate (0.6-1.4) mmol/L 5.7 H* Sodium (136-145) mmol/L 138 Potassium (3.5-5.1) mmol/L 4.0 Chloride (98-107) mmol/L 104 Carbon Dioxide (21.0-32.0) mmol/L 20.4 L Anion Gap (3-11) mmol/L 13.6 H BUN (7-18) mg/dL 13 Creatinine (0.55-1.02) mg/dL 0.9 Est GFR (CKD-EPI 2020) (mL/min/1.73m2) 87.65 Glucose (74-106) mg/dL 84 Calcium (8.5-10.1) mg/dL 9.4 Troponin I (<or=60) ng/L < 50 Serum HCG, Qual Negative Urine Color (Yellow) Yellow Urine Clarity (Clear) Clear Urine pH (5-8) 6.0 Ur Specific [place] (1.005-1.025) >= 1.030 H Urine Protein (Negative) mg/dL 30 H Urine Ketones (Negative) mg/dL Negative Urine Blood (Negative) Negative Urine Nitrite (Negative) Negative Urine Bilirubin (Negative) Negative Urine Urobilinogen (Up to 0.2) mg/dL 0.2 Ur Leukocyte Esterase (Negative) Negative Urine RBC (0-2) HPF Negative Urine WBC (0-5) HPF Negative Ur Epithelial Cells (Negative) HPF Moderate Urine Crystals (Negative) HPF Negative Urine Bacteria (Negative) HPF Few Urine Casts (Negative) LPF 0-2 Hyaline Urine Mucus (Negative) Negative Ur Culture Indicated? No Urine Glucose (Negative) mg/dL Negative Medical Decision Making The patient was seen and examined. She is in no distress and has improving vital signs while she is sitting in the emergency room even without treatment. Her tachycardia has improved to just above 100. The patient was found to have an elevated lactic acid level, which would be consistent with seizure activity. Likewise, the bite mays on her tongue would be consistent with seizure-like activity as well. The patient most likely had some form of environmental injury related to dehydration which caused her to initially have syncope. The patient was in a hot environment and was clearly dehydrated, based on her high specific gravity in her urine. Patient was hydrated here in the emergency room to volume resuscitate her. This significantly improved her tachycardia into the mid 90s. The patient has been observed here in the emergency room and has had no recurrent seizure-like activity. The patient is taking bupropion which could lower her seizure threshold. Head CT, cervical spine CT, and other laboratory workup was negative for any acute findings. There is no evidence of intracranial trauma or spinal trauma from the fall. Other than the elevated lactate and modest anion gap, and the concentrated urine, there were no other abnormal findings in her workup. The patient will be referred to neurology as an outpatient for follow-up in further consideration of future seizure management. I will instruct the patient not to drive until she has neurology follow-up for reevaluation. Quality:SDMI Health Related Social Needs: No Data to Display Discharge Plan Disposition Patient Disposition: Home Discharge Details Chief Complaint: Seizure Clinical Impression: Observed seizure-like activity, Acute dehydration, Hematoma of occipital region of scalp, Exposure to excessive heat of man-made origin as cause of accidental injury, Syncope and collapse Primary Care Provider: Abiodun Jama ED Provider: Al Shipley Home Meds and New Rx's Prescriptions: No Action levonorgestrel-ethinyl estrad [Jolessa] 1 EACH tablets,dose pack,3 month 1 cap PO DAILY polyethylene glycol 3350 527 GM powder 17 gm PO DAILY PRN (Reason: Constipation) Qty: 1 0RF lisinopril 10 MG tablet 1 tab PO DAILY spironolactone 25 MG tablet 25 mg PO DAILY hydrocortisone 1 % cream 1 applic TP TID PRN (Reason: rash) Qty: 14.2 0RF bupropion HCl 300 mg tablet extended release 24 hr 300 mg PO DAILY Patient Comments: TAKE 1 TABLET BY MOUTH DAILY Discharge Instructions Instructions: Syncope (ED), Hematoma (ED) Additional Instructions: Stay well-hydrated and continue your current medications as previously directed. You will be contacted by the neurology office to schedule close follow-up. In the interval, you should avoid driving until you are seen by neurology and have some additional diagnosis and management to determine if this is in fact seizure activity. You can always return to the ER for any new concerns or sudden changes in your health which you feel to emergency medical attention. Stand Alone Forms: Work Release
[2023-06-03 05:09] LABS: Lactate 5.7 mmol/L (0.6-1.4)
== END 2023-06-03 03:37 | disposition home or self-care (01) ==
PROVIDERS: Emergency Provider Emergency Medicine Emergency Medical Services; PCP Family Medicine
DX: R55 Syncope and collapse (principal); R56.9 Unspecified convulsions; E86.0 Dehydration; R11.0 Nausea; R42 Dizziness and giddiness; S00.03XA Contusion of scalp, initial encounter; W92.XXXA Exposure to excessive heat of man-made origin, initial encounter
CPT/HCPCS: 80048; 93005; 96360; 96361; 99284; 70450; 72125; 81003; 81015; 83605; 84484; 84703; 85025; 93010; 99283

== ENCOUNTER 2023-06-29 16:57 | Emergency (ER) | payer OTHER, SELFPAY ==
[2023-06-29 16:59] VITALS: BP 140/90; PULSE 75; RESP 17; TEMP 36.8; O2SAT 100
[2023-06-29] MEDS: Benzocaine 20% Gel 30 GM JAR MM (17:26)
--- NOTE | 2023-06-29 20:06 | ED.GENADUL_ITS ---
HPI General Date/Time Provider Initiated Documentation: 06/29/23 17:07 . HPI Narrative: This 32-year-old female presents with right upper dental pain and ear pain. Denies any chest pain or shortness of breath. Denies history of similar symptoms in the past. States she has had the symptoms for approximately 48 hours. Pain is exacerbated with chewing and palpation ventral to her ear. Denies any known trauma. Related Data Home Medications Medication Instructions Recorded Confirmed levonorgestrel 0.15 mg-ethinyl 1 cap PO DAILY 05/21/14 06/29/23 estradiol 30 mcg tablets,3 mos pack(91) (Charmaine) polyethylene glycol 3350 17 17 g PO DAILY PRN Constipation ##1 05/21/14 06/29/23 gram/dose oral powder lisinopril 10 mg tablet 1 tab PO DAILY 03/28/15 06/29/23 spironolactone 25 mg tablet 25 mg PO DAILY 01/03/18 06/29/23 hydrocortisone 1 % topical cream 1 applic topical TID PRN rash 03/23/19 06/29/23 #14.2 grams bupropion HCl 300 mg 24 hr tablet, 300 mg PO DAILY 12/06/21 06/29/23 extended release rizatriptan 5 mg disintegrating 5 mg PO .COMPLEX #12 tabs 06/08/23 06/29/23 tablet penicillin V potassium 500 mg 500 mg PO Q6H 10 days #40 tabs 06/29/23 tablet Previous Rx's Medication Instructions Recorded polyethylene glycol 3350 17 17 g PO DAILY PRN Constipation ##1 05/21/14 gram/dose oral powder hydrocortisone 1 % topical cream 1 applic topical TID PRN rash 03/23/19 #14.2 grams rizatriptan 5 mg disintegrating 5 mg PO .COMPLEX #12 tabs 06/08/23 tablet penicillin V potassium 500 mg 500 mg PO Q6H 10 days #40 tabs 06/29/23 tablet Allergies Allergy/AdvReac Type Severity Reaction Status Date / Time adhesive Allergy Mild Skin Rash Unverified 06/29/23 17:09 General Stated Complaint: EarProblem MAYUR: 4 Course Vital Signs Vital signs: Vital Signs Temperature 36.8 C 06/29/23 16:59 Pulse 75 06/29/23 16:59 Respiratory Rate 17 06/29/23 16:59 Blood Pressure 140/90 06/29/23 16:59 Pulse Oximetry 100 06/29/23 16:59 Temperature 36.8 C 06/29/23 16:59 Temperature Source Oral 06/29/23 16:59 Pulse 75 06/29/23 16:59 Respiratory Rate 17 06/29/23 16:59 Respiratory Effort Normal, Non-Labored 06/29/23 17:04 Blood Pressure 140/90 06/29/23 16:59 Blood Pressure Position Sitting 06/29/23 16:59 Pulse Oximetry 100 06/29/23 16:59 Oxygen Delivery Method Room Air 06/29/23 16:59 Oxygen Flow Rate 0 06/29/23 16:59 Procedures Nerve Block Nerve Block 1: Time out performed: Yes Local Anesthetic: Bupivicaine 0.5% Amount of anesthesia used (mL): 1.5 Side: right Intraoral Nerve Block: superior alveolar Procedure Successful: Yes Patient Tolerated Procedure: well and no complications Complications: none Medical Decision Making This 82-year-old female presents with dental pain which started several days ago She has a fractured tooth #2 and pain on the gumline adjacent to this, there is no palpable fluctuance or drainable abscess/deep space infection, specifically no evidence of Ludwigs angina Patient was offered a dental block She received 1.5 cc of bupivacaine She had immediate relief of symptoms Placed on penicillin VK and given a dental list for referral Denies any pain at time of discharge home feeling significantly symptomatically improved Medical Records Medical records reviewed: Yes I reviewed the patient's medical records. Quality:SDOH Health Related Social Needs: No Data to Display PFSH All Active Problems (Updated 06/29/23 @ 17:37 by TUCKER Mendez) Abscess, dental (Acute) Migraine headache without aura (Acute) Migraine headache with aura (Acute) Concussion (Acute) Post concussion syndrome (Acute) Syncope and collapse (Acute) Exposure to excessive heat of man-made origin as cause of accidental injury (Acute) Hematoma of occipital region of scalp (Acute) Acute dehydration (Acute) Observed seizure-like activity (Acute) Medical History Hyperlipidemia Insomnia Depression Hypertension Surgical History S/P cholecystectomy Family History Mother Hypertension Hyperlipidemia Diabetes Father Stroke Heart disease Social History Smoking/Tobacco Use Status: Former Tobacco Use Smoking risk assessment performed?: Yes Alcohol Intake: current Alcohol Intake frequency: a few times a month Alcohol type: hard liquor Drug use: Occasionally Substance use type: marijuana Household members: none Housing: apartment Number of Children: 0 current occupation: [employer] Do you feel safe at home: Yes Do you feel safe in your relationship?: Yes Discharge Plan Disposition Patient Disposition: Home Discharge Details Clinical Impression: Abscess, dental Primary Care Provider: Abiodun Jama ED Provider: Sharee Mosqueda Home Meds and New Rx's Prescriptions: New penicillin V potassium 500 mg tablet 500 mg PO Q6H 10 Days Qty: 40 0RF Continued rizatriptan 5 mg tablet,disintegrating 5 mg PO .COMPLEX Qty: 12 3RF Rx Instructions: take 5mg at onset of headache; if no improvement after 2 hours, then ok to take a second. No more than 2 tabs in a single 24 hour period. levonorgestrel-ethinyl estrad [Jolessa] 1 EACH tablets,dose pack,3 month 1 cap PO DAILY polyethylene glycol 3350 527 GM powder 17 g PO DAILY PRN (Reason: Constipation) Qty: 1 0RF lisinopril 10 MG tablet 1 tab PO DAILY spironolactone 25 MG tablet 25 mg PO DAILY hydrocortisone 1 % cream 1 applic TP TID PRN (Reason: rash) Qty: 14.2 0RF bupropion HCl 300 mg tablet extended release 24 hr 300 mg PO DAILY Patient Comments: TAKE 1 TABLET BY MOUTH DAILY Discharge Instructions Instructions: Dental Abscess (ED) Additional Instructions: Take antibiotic as prescribed Yogurt daily while on antibiotic New Motrin and Tylenol as needed for pain You received a dose of bupivacaine, it will last for between 4 and 12 hours Please call to establish care with a dentist Return earlier should he have new or worsening complaints Referrals: Abiodun Jama MD [Primary Care Provider] - Discharge Data Discharge Date/Time-TO BE ENTERED AT DEPARTURE: 06/29/23 17:44
== END 2023-06-29 17:44 | disposition home or self-care (01) ==
PROVIDERS: Emergency Provider Physician Assistant; PCP Family Medicine
DX: K04.7 Periapical abscess without sinus (principal); I10 Essential (primary) hypertension; Z79.899 Other long term (current) drug therapy; Z87.891 Personal history of nicotine dependence
CPT/HCPCS: 64400; 99283

== ENCOUNTER 2024-02-09 21:32 | Emergency (ER) | payer OTHER, SELFPAY ==
[2024-02-09 21:43] VITALS: BP 150/105; PULSE 99; RESP 22; TEMP 36.6; O2SAT 98
--- NOTE | 2024-02-09 21:45 | RT.EKG_ITS ---
APPROVED REPORT Exam: Resting ECG Reason for Exam: chest pain Patient Location: E HR:84 bpm ECG Measurements Heart Rate 84 AXIS CO 132 P 78 QRSd 84 QRS 78 QT 348 T 29 QTc 411 Conclusion Sinus rhythm...normal P axis, V-rate 60- 99 I have reviewed and interpreted ECG and agree with software generated interpretation.
--- NOTE | 2024-02-09 22:23 | W.ED.GENAD ---
Discharge Plan Disposition Patient Disposition: Home Condition: Good Discharge Details Clinical Impression: Chest wall discomfort Primary Care Provider: Abiodun Jama ED Provider: Hank Hernandez Home Meds and New Rx's Prescriptions: No Action rizatriptan 5 mg tablet,disintegrating 5 mg PO .COMPLEX Qty: 12 3RF Rx Instructions: take 5mg at onset of headache; if no improvement after 2 hours, then ok to take a second. No more than 2 tabs in a single 24 hour period. levonorgestrel-ethinyl estrad [Jolessa] 1 EACH tablets,dose pack,3 month 1 cap PO DAILY polyethylene glycol 3350 527 GM powder 17 g PO DAILY PRN (Reason: Constipation) Qty: 1 0RF lisinopril 10 MG tablet 1 tab PO DAILY spironolactone 25 MG tablet 25 mg PO DAILY hydrocortisone 1 % cream 1 applic TP TID PRN (Reason: rash) Qty: 14.2 0RF bupropion HCl 300 mg tablet extended release 24 hr 300 mg PO DAILY Patient Comments: TAKE 1 TABLET BY MOUTH DAILY Discharge Instructions Instructions: Chest Pain, Adult ED Additional Instructions: At this time your laboratory workup has returned very reassuring. There is no evidence of heart attack, blood clot, or significant abnormality with your laboratory workup. Your kidney function is excellent and your heart numbers are very good. As we discussed together I am concerned that there may be a component of irritation in the muscles or the lining of your lungs that could be causing some of the pain. Please take Tylenol or Motrin as needed. Use heat or ice to your chest wall for the pain. Stay well-hydrated and drink 10 to 12 cups of water or electrolyte solution per day. If you notice any worsening of your symptoms, or any new symptoms such as vomiting, diarrhea, fever, chills, shortness of breath, chest pain, numbness, weakness, or fainting , please return immediately to the emergency department for reevaluation. Please follow up with your primary care provider as soon as possible for reassessment and reevaluation. As always, it was a pleasure participating in your medical care today. Referrals: Abiodun Jama MD [Primary Care Provider] - [facility] General Date/Time Provider Initiated Documentation: 02/09/24 22:04. [facility] Narrative: This is a 33-year-old female with a past medical history of migraines, previous concussion, currently on estrogen-based control, who presents today for evaluation of chest pain. Patient states that she was at work, which was at [employer] and about 3 hours ago she began feeling slightly dizzy lightheaded and had a left chest and left arm achy stabbing sensation. It also went to her left back. She denies any tearing or ripping sensation. She also had symptomatic pleuritic chest pain in association with this. She denies any syncope. She did have an episode of syncope a week or 2 ago. She denies family history of sudden cardiac , she denies family history of blood clots. She denies any recent long trips surgeries or procedures, hemoptysis, cough, fever or chills. She did recently go to [place] for a concert but no long trips otherwise. Patient states that her symptoms continued and then by the time she arrived here her symptoms nearly completely resolved. She denies any tobacco use, cocaine or methamphetamine use. She denies any smoked marijuana or vaping. She does occasionally take edible marijuana. She also admits to mild epigastric achiness occasionally over the last day or so. She last drank alcohol 1 week ago which was a single drink. No other complaints at this time. No other modifying factors. Related Data Home Medications ?Medication ?Instructions ?Recorded ?Confirmed levonorgestrel 0.15 mg-ethinyl 1 cap PO DAILY 05/21/14 02/09/24 estradiol 30 mcg tablets,3 mos pack(91) (Charmaine) polyethylene glycol 3350 17 17 g PO DAILY PRN Constipation ##1 05/21/14 02/09/24 gram/dose oral powder lisinopril 10 mg tablet 1 tab PO DAILY 03/28/15 02/09/24 spironolactone 25 mg tablet 25 mg PO DAILY 01/03/18 02/09/24 hydrocortisone 1 % topical cream 1 applic topical TID PRN rash 03/23/19 02/09/24 #14.2 grams bupropion HCl 300 mg 24 hr tablet, 300 mg PO DAILY 12/06/21 02/09/24 extended release rizatriptan 5 mg disintegrating 5 mg PO .COMPLEX #12 tabs 06/08/23 02/09/24 tablet Previous Rx's ?Medication ?Instructions ?Recorded polyethylene glycol 3350 17 17 g PO DAILY PRN Constipation ##1 05/21/14 gram/dose oral powder hydrocortisone 1 % topical cream 1 applic topical TID PRN rash 03/23/19 #14.2 grams rizatriptan 5 mg disintegrating 5 mg PO .COMPLEX #12 tabs 06/08/23 tablet Allergies Allergy/AdvReac Type Severity Reaction Status Date / Time adhesive Allergy Mild Skin Rash Unverified 02/09/24 21:47 General Stated Complaint: Chest Pain MAYUR: 3 Review of Systems All systems reviewed & are unremarkable except as noted in HPI and below Exam Narrative Exam Narrative: 1.Const: Well-nourished, Well-developed, appearing stated age 2.Eyes: PERRL, no conjunctival injection, and symmetrical lids. 3.ENT: Atraumatic external nose and ears. Dry MM. Neck: Symmetric, trachea midline, No thyromegaly. 4.CVS: +S1/S2, No murmurs or gallops. Peripheral pulses 2+ and equal in all extremities. Brisk capillary refill in all extremities. 5.RESP: Unlabored respiratory effort. Clear to auscultation bilaterally. No wheezes rales or rhonchi. Mild reproducible chest wall discomfort over the left anterior chest wall. 6.GI: Soft, Nontender/Nondistended, No hepatosplenomegaly. No guarding or rebound. 7.MSK: Normocephalic/Atraumatic, Extremities w/o deformity or ttp No cyanosis or clubbing, Normal movement of all extremities. 8.Skin: Warm, Dry. No rashes or lesions. 9.Neuro: chrome tanner II-XII grossly intact. Sensation grossly intact, no focal neurologic deficits. 10.Psych: (AAO) x3. Appropriate mood and affect Course Vital Signs Vital signs: Vital Signs Temperature 36.6 C 02/09/24 21:43 Pulse 99 H 02/09/24 21:43 Respiratory Rate 22 02/09/24 21:43 Blood Pressure 150/105 H 02/09/24 21:43 Pulse Oximetry 98 02/09/24 21:43 Temperature 36.6 C 02/09/24 21:43 Temperature Source Temporal Artery Scan 02/09/24 21:43 Pulse 99 H 02/09/24 21:43 Respiratory Rate 22 02/09/24 21:43 Respiratory Effort Normal, Non-Labored 02/09/24 21:46 Blood Pressure 150/105 H 02/09/24 21:43 Blood Pressure Position Sitting 02/09/24 21:43 Pulse Oximetry 98 02/09/24 21:43 Oxygen Delivery Method Room Air 02/09/24 21:43 Oxygen Flow Rate 0 02/09/24 21:43 Pain Level 2 02/09/24 21:43 Medical Decision Making This is a 33-year-old female with a past medical history of migraines, previous concussion, currently on estrogen-based control, who presents today for evaluation of chest pain. Patient states that she was at work, which was at [employer] and about 3 hours ago she began feeling slightly dizzy lightheaded and had a left chest and left arm achy stabbing sensation. It also went to her left back. She denies any tearing or ripping sensation. She also had symptomatic pleuritic chest pain in association with this. She denies any syncope. She did have an episode of syncope a week or 2 ago. She denies family history of sudden cardiac , she denies family history of blood clots. She denies any recent long trips surgeries or procedures, hemoptysis, cough, fever or chills. She did recently go to [place] for a concert but no long trips otherwise. Patient states that her symptoms continued and then by the time she arrived here her symptoms nearly completely resolved. She denies any tobacco use, cocaine or methamphetamine use. She denies any smoked marijuana or vaping. She does occasionally take edible marijuana. She also admits to mild epigastric achiness occasionally over the last day or so. She last drank alcohol 1 week ago which was a single drink. No other complaints at this time. No other modifying factors. Exam demonstrates well-appearing female, mildly elevated heart rate and blood pressure. Dry mucous membranes. No calf tenderness, there is reproducible chest wall pain on the anterior left chest wall. Differential includes musculoskeletal etiology, precordial catch syndrome, less likely ACS or PE. EKG shows no evidence of STEMI. No dagger like Q waves, no epsilon or delta wave. Symptoms appear inconsistent with hocm. We will evaluate for these concerning etiologies, as she is pain-free will hold off on any pain meds. Will rehydrate, monitor closely and reassess. 11:45 PM Laboratory workup has returned benign, normal D-dimer, normal initial and repeat troponin, normal proBNP showing no signs of heart strain. Normal lipase. Normal thyroid function. Patient feels well, her symptoms remain completely resolved. She denies any other complaints at this time. She feels well and would like to go home. Patient stable for discharge. No evidence of acute life-threatening etiology. Symptoms inconsistent with dissection, PE, pneumothorax, [place], or other life-threatening etiology. I have extensively reviewed the treatment plan and discharge instructions with the patient. I have addressed all patient concerns at this time. The patient was made aware of what symptoms to monitor for that would warrant a return to the emergency department. Discussed the plan with the patient, they demonstrate verbal understanding and agreement with our assessment and plan at this time. The documentation in this chart was dictated using [employer] dictation software. Please excuse any dictation errors. FINDINGS: Lungs: There is no consolidation. Pleural spaces: No pleural effusion or pneumothorax. Heart/Mediastinum: The heart and mediastinum are normal in size. Bones/joints: Unremarkable. IMPRESSION: No acute findings. Thank you for allowing us to participate in the care of your patient. Dictated and Authenticated by: Nacho Landon MD 02/10/2024 1:33 AM Eastern Time ([place] & [place]) Quality:SDOH Health Related Social Needs: No Data to Display PFSH All Active Problems (Updated 02/10/24 @ 00:19 by Hank Hernandez DO) Chest wall discomfort (Acute) Migraine headache without aura (Acute) Migraine headache with aura (Acute) Concussion (Acute) Post concussion syndrome (Acute) Medical History Hyperlipidemia Insomnia Depression Hypertension Surgical History S/P cholecystectomy Family History Mother Hypertension Hyperlipidemia Diabetes Father Stroke Heart disease Social History Smoking/Tobacco Use Status: Former Tobacco Use Smoking risk assessment performed?: Yes Alcohol Intake: current Alcohol Intake frequency: a few times a month Alcohol type: hard liquor Drug use: Occasionally Substance use type: marijuana Household members: none Housing: apartment Number of Children: 0 current occupation: [employer] Do you feel safe at home: Yes Do you feel safe in your relationship?: Yes
[2024-02-09 22:39] VITALS: RESP 18
[2024-02-09] MEDS: Lactated Ringers 1,000 ML 1000 ML IV (22:41)
[2024-02-09 22:43] LABS: Abs Immature Grans 0.04 10^3/uL (0.0-0.06); Absolute Basophil Count 0.06 10^3/uL (0.0-0.2); Absolute Eosinophil Count 0.04 10^3/uL (0.0-0.7); Absolute Lymphocyte Count 3.89 10^3/uL (1.2-3.4); Absolute Monocyte Count 0.42 10^3/uL (0.1-0.8); Absolute Neutrophil Count 5.69 10^3/uL (1.2-6.7); Basophils % 0.6 %; Eosinophils % 0.4 %; HCT 46.2 % (36.0-46.0); HGB 15.7 g/dL (11.2-15.7); Immature Grans % 0.4 %; Lymphocytes % 38.4 %; MCV 94 fL (80-95); MPV 8.3 fL (8.0-11.0); Monocytes % 4.1 %; Neutrophils % 56.1 %; Platelet Count 312 10^3/uL (130-400); RBC 4.91 10^6/uL (3.93-5.22); RDW 11.4 % (11.7-14.6); RDW-SD 39.3 fL; WBC 10.14 10^3/uL (4.4-10.8)
[2024-02-09 22:45] VITALS: BP 133/85; PULSE 80; RESP 16; O2SAT 98
[2024-02-09 23:00] LABS: PTT Activated 27.7 sec (23.6-32.8); Prothrombin Time 9.9 sec (9.1-11.1)
[2024-02-09 23:09] LABS: ALT 18 U/L (14-59); AST 13 U/L (15-37); Albumin 4.2 g/dL (3.4-5.0); Alkaline Phosphatase 99 U/L (46-116); Anion Gap 8.3 mmol/L (3-11); BUN 13 mg/dL (7-18); Bilirubin, Total 0.44 mg/dL (0.2-1.0); CO2 26.7 mmol/L (21.0-32.0); Chloride 102 mmol/L (98-107); Estimated GFR 76.76 (mL/min/1.73m2); Glucose 95 mg/dL (74-106); Lipase 24 U/L (16-77); NT-proBNP 24 pg/mL (<300); Potassium 4.1 mmol/L (3.5-5.1); Sodium 137 mmol/L (136-145); TSH (W/Ref FT4) 2.66 uIU/mL (0.36-3.74); Total Protein 8.3 g/dL (6.4-8.2); Troponin I < 4 ng/L (<or=51)
[2024-02-09 23:15] VITALS: BP 157/86; PULSE 74; RESP 16; O2SAT 100
[2024-02-09 23:15] LABS: Calcium 10.1 mg/dL (8.5-10.1)
[2024-02-09 23:28] LABS: D-Dimer 423 ng/mlFEU (<500)
[2024-02-09 23:30] VITALS: BP 162/92; PULSE 76; RESP 15; O2SAT 100
--- NOTE | 2024-02-09 23:30 | DI.RAD_ITS ---
Exam(s) XR PORTABLE CHEST AP EXAM: XR PORTABLE CHEST AP CLINICAL HISTORY: left sided chest pain TECHNIQUE: 2D digital imaging was performed. COMPARISON: No exams were available for comparison FINDINGS: LUNGS: Clear. No pleural abnormality seen. HEART: Normal size. AORTA: Normal diameter. BONES: Unremarkable for age. Soft tissues: Unremarkable. IMPRESSION: No acute findings. DATA REPOSITORY: RADIATION DOSE DELIVERED:
--- NOTE | 2024-02-09 23:47 | NUR.NOTE ---
Nursing Note: Pt states she is not , states there is no possibility of . Pt agreeable to CXR without test.
[2024-02-10] VITALS: BP 148/96; PULSE 78; RESP 17; O2SAT 99
[2024-02-10] LABS: Troponin I < 4 ng/L (<or=51)
--- NOTE | 2024-02-10 01:34 | DI.VRAD_ITS ---
PROCEDURE INFORMATION: Exam: XR Chest Exam date and time: 02/09/2024 11:56 PM Age: 33 years old Clinical indication: Pain; Left-sided; Additional info: Left sided chest pain TECHNIQUE: Imaging protocol: Radiologic exam of the chest. Views: 1 view. COMPARISON: CT HEAD CERVICAL SPINE WO 10/28/2023 01:44 FINDINGS: Lungs: There is no consolidation. Pleural spaces: No pleural effusion or pneumothorax. Heart/Mediastinum: The heart and mediastinum are normal in size. Bones/joints: Unremarkable. IMPRESSION: No acute findings. Dictated and Authenticated by: Nacho Landon MD. Ordering:AASHISH Mckinney MD
== END 2024-02-10 00:39 | disposition home or self-care (01) ==
PROVIDERS: Emergency Provider Student in an Organized Health Care Education/Training Program; PCP Family Medicine
DX: R07.89 Other chest pain (principal); I10 Essential (primary) hypertension; E78.5 Hyperlipidemia, unspecified; Z87.891 Personal history of nicotine dependence
CPT/HCPCS: 36415; 80053; 83690; 93005; 96360; 99284; 71045; 83880; 84443; 84484; 85025; 85379; 85610; 85730; 93010

== ENCOUNTER 2024-04-16 16:54 | Emergency (ER) | payer OTHER, SELFPAY ==
[2024-04-16] VITALS (14 sets, daily range): BP systolic 158–190; BP diastolic 96–120; PULSE 71–100; RESP 16–21; TEMP 36.9; O2SAT 96–99
--- NOTE | 2024-04-16 17:00 | RT.EKG_ITS ---
APPROVED REPORT Exam: Resting ECG Reason for Exam: dizzy Patient Location: E HR:95 bpm ECG Measurements Heart Rate 95 AXIS MI 119 P 76 QRSd 87 QRS 59 QT 337 T 45 QTc 424 Conclusion Sinus rhythm...normal P axis, V-rate 60- 99
--- NOTE | 2024-04-16 17:15 | DI.CT_ITS ---
Exam(s) CT HEAD WO EXAM: CT HEAD WO CLINICAL HISTORY: seizure, headache. TECHNIQUE: Imaging Protocol: Axial computed tomography images with coronal and sagittal reformatted images were created and reviewed COMPARISON: CT CT HEAD CERVICAL SPINE WO from 06/03/2023 FINDINGS: There are no skull fractures. There is no fluid in the visualized paranasal sinuses. There is no evidence of intracranial hemorrhage, mass effect, or shift of midline structures. There are no extra-axial fluid collections. The ventricles are not enlarged or shifted and there is no blo od within the ventricular system nor within the basal cisterns. IMPRESSION: No acute intracranial findings on this noninfused CT scan of the brain. RADIATION DOSE DELIVERED: 810.26mGy.cm Total DLP DATA REPOSITORY: All CT scans at this facility are submitted to the National Radiology Data Registry (NRDR) Dose Index Registry (DIR) with the [employer] (ACR). RADIATION OPTIMIZATION: All CT scans at this facility use at least one of these dose optimization te chniques: automated exposure control; mA and/or kV adjustment per patient size (includes targeted exa ms where dose is matched to clinical indication); or iterative reconstruction.
--- NOTE | 2024-04-16 17:28 | ED.GENADUL_ITS ---
Discharge Plan Disposition Patient Disposition: Home Condition: Stable Discharge Details Clinical Impression: Light-headed, Seizure-like activity, Headache Primary Care Provider: Abiodun Jama ED Provider: Brett Alicia Home Meds and New Rx's Prescriptions: Continued rizatriptan 5 mg tablet,disintegrating 5 mg PO .COMPLEX Qty: 12 3RF Rx Instructions: take 5mg at onset of headache; if no improvement after 2 hours, then ok to take a second. No more than 2 tabs in a single 24 hour period. levonorgestrel-ethinyl estrad [Jolessa] 1 EACH tablets,dose pack,3 month 1 cap PO DAILY polyethylene glycol 3350 527 GM powder 17 g PO DAILY PRN (Reason: Constipation) Qty: 1 0RF lisinopril 10 MG tablet 1 tab PO DAILY spironolactone 25 MG tablet 25 mg PO DAILY hydrocortisone 1 % cream 1 applic TP TID PRN (Reason: rash) Qty: 14.2 0RF bupropion HCl 300 mg tablet extended release 24 hr 300 mg PO DAILY Patient Comments: TAKE 1 TABLET BY MOUTH DAILY Discharge Instructions Additional Instructions: Your blood work and CAT scan today did not show any concerning findings Follow-up with your primary care provider especially if symptoms continue within a week You should avoid driving and bathing/swimming by yourself until cleared by your primary care provider and neurologist If you feel more ill or feel you are suffering from emergent medical process return to the emergency department for reevaluation HPI General Mode of arrival: ambulatory . Date/Time Provider Initiated Documentation: 04/16/24 17:11 . Limitations to Documentation: no limitations . Information obtained by: patient . History of Present Illness 33 year old F presents to the emergency department with the chief complaint of Lightheaded, described as moderate, and is localized to the head. Patient started experiencing this week(s) (1) and it has been constant. No relieving factors improve symptom(s), No exacerbating factors reported . Patient notes other (seizure?). Related Data Home Medications ?Medication ?Instructions ?Recorded ?Confirmed levonorgestrel 0.15 mg-ethinyl 1 cap PO DAILY 05/21/14 04/16/24 estradiol 30 mcg tablets,3 mos pack(91) (Jolessa) polyethylene glycol 3350 17 17 g PO DAILY PRN Constipation ##1 05/21/14 04/16/24 gram/dose oral powder lisinopril 10 mg tablet 1 tab PO DAILY 03/28/15 04/16/24 spironolactone 25 mg tablet 25 mg PO DAILY 01/03/18 04/16/24 hydrocortisone 1 % topical cream 1 applic topical TID PRN rash 03/23/19 04/16/24 #14.2 grams bupropion HCl 300 mg 24 hr tablet, 300 mg PO DAILY 12/06/21 04/16/24 extended release rizatriptan 5 mg disintegrating 5 mg PO .COMPLEX #12 tabs 06/08/23 04/16/24 tablet Previous Rx's ?Medication ?Instructions ?Recorded polyethylene glycol 3350 17 17 g PO DAILY PRN Constipation ##1 05/21/14 gram/dose oral powder hydrocortisone 1 % topical cream 1 applic topical TID PRN rash 03/23/19 #14.2 grams rizatriptan 5 mg disintegrating 5 mg PO .COMPLEX #12 tabs 06/08/23 tablet Allergies Allergy/AdvReac Type Severity Reaction Status Date / Time adhesive Allergy Mild Skin Rash Unverified 04/16/24 17:05 General Stated Complaint: Dizzy/Sync MAYUR: 3 Review of Systems All systems reviewed & are unremarkable except as noted in HPI and below Constitutional Constitutional: Denies chills, Denies fever(s), Reports headache(s) and Denies weakness ENT Ears, Nose, Mouth, and Throat: Reports headache(s) Cardiovascular Cardiovascular: Denies chest pain, Reports lightheadedness and Denies dyspnea Respiratory Respiratory: Denies cough and Denies dyspnea Gastrointestinal Gastrointestinal: Denies abdominal pain, Denies nausea and Denies vomiting Neurologic Neurologic: Reports headache(s), Reports seizure-like activity and Denies weakness Exam Const General: no acute distress Orientation: alert [facility] Head: normal to inspection Ears: external ears normal General nose exam: external nose normal Mouth: moist mucous membranes Eyes General: appearance normal, both eyes and all related structures Neck Neck: normal visual inspection Resp Effort & Inspection: normal respiratory effort and able to speak in complete sentences Auscultation: clear to auscultation bilaterally Cardio Jugular venous pressure: no JVD Rate: regular rate Heart Sounds: no murmurs Skin General skin exam: no rashes or lesions noted Neuro General: patient alert and patient oriented x3 Cranial Nerves: CN's II-XI intact bilaterally and PERRL Speech: speech normal Gait: normal gait Motor: muscle tone normal throughout Sensory Exam: no sensory deficits noted Extrem General: normal to inspection Psych Mental Status: mental status grossly normal Course Vital Signs Vital signs: Vital Signs Temperature 36.9 C 04/16/24 16:59 Pulse 100 H 04/16/24 16:59 Respiratory Rate 18 04/16/24 16:59 Blood Pressure 190/100 H 04/16/24 16:59 Pulse Oximetry 98 04/16/24 16:59 Temperature 36.9 C 04/16/24 16:59 Temperature Source Oral 04/16/24 16:59 Pulse 100 H 04/16/24 16:59 Respiratory Rate 18 04/16/24 16:59 Blood Pressure 182/120 H 04/16/24 17:06 Blood Pressure Position Sitting 04/16/24 16:59 Pulse Oximetry 98 04/16/24 16:59 Oxygen Delivery Method Room Air 04/16/24 16:59 Oxygen Flow Rate 0 04/16/24 16:59 Medical Decision Making 33-year-old female whose had prior episodes of seizure-like activity, migraines, comes in after she says a week ago she was playing the [employer] game when her friend noticed that she went limp and started shaking her extremities this lasted for about a minute and the patient immediately stood up and started walking around and asking questions that she does not remember. She says since then she has felt lightheaded and off. She denies any chest pain, difficulty b reathing, vomiting, fevers, IV drug use. She is alert and oriented x 4 on arrival. She does not mild frontal headache, she is unsure if this is like what her normal migraines feeling. She has not been taking her normal blood pressure medications or other prescription meds as she says she has forgotten to take in the past week. She has an NIH of 0 on exam. I suspect migraine versus possibly did have a seizure. Will obtain CT head to rule out hemorrhage and mass, will also check CBC CMP and troponins with her lightheadedness complaint and treat her headache with Compazine, Benadryl and dexamethasone and reassess. Patient has had normal telemetry monitoring here and blood pressures improved to 160/100 since getting her oral antihypertensives. Head CT shows no acute findings and labs are unremarkable. Given reassuring workup and improvement in her symptoms with migraine medicines feel she can follow-up with her PCP, return precautions given Differential Diagnosis Differential Diagnosis: Migraine, seizure-like activity, hemorrhage ECG Data Attestation: I personally reviewed and interpreted this ECG (s) as follows: Prior ECG tracings: available for review Interpretation: Sinus rhythm, rate 95, [place] 119, no STEMI Quality:SDOH Health Related Social Needs: No Data to Display PFSH All Active Problems (Updated 04/16/24 @ 19:58 by Brett Alicia MD) Headache (Acute) Seizure-like activity (Acute) Light-headed (Acute) Migraine headache without aura (Acute) Migraine headache with aura (Acute) Concussion (Acute) Post concussion syndrome (Acute) Medical History Hyperlipidemia Insomnia Depression Hypertension Surgical History S/P cholecystectomy Family History Mother Hypertension Hyperlipidemia Diabetes Father Stroke Heart disease Social History Smoking/Tobacco Use Status: Former Tobacco Use Smoking risk assessment performed?: Yes Alcohol Intake: current Alcohol Intake frequency: a few times a month Alcohol type: hard liquor Drug use: Occasionally Substance use type: marijuana Household members: none Housing: apartment Number of Children: 0 current occupation: [employer] Do you feel safe at home: Yes Do you feel safe in your relationship?: Yes
[2024-04-16 18:45] LABS: Abs Immature Grans 0.02 10^3/uL (0.0-0.06); Absolute Basophil Count 0.05 10^3/uL (0.0-0.2); Absolute Eosinophil Count 0.08 10^3/uL (0.0-0.7); Absolute Lymphocyte Count 3.74 10^3/uL (1.2-3.4); Absolute Monocyte Count 0.49 10^3/uL (0.1-0.8); Absolute Neutrophil Count 5.28 10^3/uL (1.2-6.7); Basophils % 0.5 %; Eosinophils % 0.8 %; HCT 44.3 % (36.0-46.0); HGB 15.1 g/dL (11.2-15.7); Immature Grans % 0.2 %; Lymphocytes % 38.7 %; MCH 31.7 pg (27.0-33.0); MCHC 34.1 % (32.0-36.0); MCV 93 fL (80-95); MPV 9.1 fL (8.0-11.0); Monocytes % 5.1 %; Neutrophils % 54.7 %; Platelet Count 303 10^3/uL (130-400); RBC 4.77 10^6/uL (3.93-5.22); RDW 11.6 % (11.7-14.6); RDW-SD 39.8 fL; WBC 9.66 10^3/uL (4.4-10.8)
[2024-04-16] MEDS: diphenhydrAMINE 50 MG/ML VIAL 12.5 MG IVP (18:45)
[2024-04-16] MEDS: Lisinopril 10 MG TAB PO (18:45)
[2024-04-16] MEDS: Dexamethasone 10 MG/ML VIAL IVP (18:45)
[2024-04-16] MEDS: Prochlorperazine 10 MG/2 ML VIAL IVP (18:45)
[2024-04-16] MEDS: Spironolactone 25 MG TAB PO (18:45)
[2024-04-16 19:01] LABS: ALT 14 U/L (14-59); AST 12 U/L (15-37); Albumin 3.1 g/dL (3.4-5.0); Alkaline Phosphatase 104 U/L (46-116); Anion Gap 6.1 mmol/L (3-11); BUN 8 mg/dL (7-18); Bilirubin, Total 0.24 mg/dL (0.2-1.0); CO2 27.9 mmol/L (21.0-32.0); CREATININE 0.9 mg/dL (0.55-1.02); Calcium 8.8 mg/dL (8.5-10.1); Chloride 107 mmol/L (98-107); Estimated GFR 87.11 (mL/min/1.73m2); Glucose 100 mg/dL (74-106); Potassium 3.9 mmol/L (3.5-5.1); Sodium 141 mmol/L (136-145); Total Protein 7.2 g/dL (6.4-8.2)
[2024-04-16 19:03] LABS: HCG Qual (Serum) Negative
[2024-04-16 19:11] LABS: Magnesium 1.9 mg/dL (1.8-2.4); TSH (W/Ref FT4) 2.51 uIU/mL (0.36-3.74); Troponin I 4 ng/L (<or=51)
[2024-04-16 19:14] LABS: Troponin I 4 ng/L (<or=51)
--- NOTE | 2024-04-16 19:22 | DI.VRAD_ITS ---
PROCEDURE INFORMATION: Exam: CT Head Without Contrast Exam date and time: 04/16/2024 7:07 PM Age: 33 years old Clinical indication: Syncope and collapse and other: Seizure; Patient HX: Seizure, headache TECHNIQUE: Imaging protocol: Computed tomography of the head without contrast. COMPARISON: CT HEAD CERVICAL SPINE WO 06/03/2023 1:44 AM FINDINGS: Brain: Mild volume loss.No hemorrhage. Unremarkable white matter. No mass effect. Cerebral ventricles: No ventriculomegaly. Paranasal sinuses: Visualized sinuses are unremarkable. No fluid levels. Mastoid air cells: Visualized mastoid air cells are well aerated. Bones: Unremarkable. No acute fracture. Soft tissues: Unremarkable. IMPRESSION: No acute intracranial abnormality. Dictated and Authenticated by: Lorenzo Yoon MD. Ordering:BELEN West MD
== END 2024-04-16 20:06 | disposition home or self-care (01) ==
PROVIDERS: Emergency Provider Emergency Medicine; PCP Family Medicine
DX: G40.909 Epilepsy, unspecified, not intractable, without status epilepticus (principal); I10 Essential (primary) hypertension; E78.5 Hyperlipidemia, unspecified; R42 Dizziness and giddiness; R51.9 Headache, unspecified
CPT/HCPCS: 36415; 80053; 93005; 96374; 96375; 99285; 70450; 83735; 84443; 84484; 84703; 85025; 93010; J0780; J1100; J1200

== ENCOUNTER 2024-06-14 01:10 | Outpatient (CLI) | payer OTHER, SELFPAY ==
--- NOTE | 2024-06-18 10:43 | PDOC.EEG_ITS ---
Neurology EEG EEG: [facility] Department of Neurology LONG-TERM AMBULATORY EEG REPORT Date of Recordin06/14/24 at 18:56:29 to 04/15/25 at 11:35:08 Interpreting Physician: Dr. Cecy Castillo PCP/Referring Provider: Dr. Abiodun Jama Reason for study: Shaina Paiz is a 33 year old with a single event concerning for syncope vs seizure. Current Medications: Home Medications ?Medication ?Instructions ?Recorded ?Confirmed ?Type levonorgestrel 0.15 mg-ethinyl 1 cap PO DAILY 05/21/14 05/15/24 History estradiol 30 mcg tablets,3 mos pack(91) (Jolessa) polyethylene glycol 3350 17 17 g PO DAILY PRN Constipation ##1 05/21/14 05/15/24 Rx gram/dose oral powder lisinopril 10 mg tablet 1 tab PO DAILY 03/28/15 05/15/24 History spironolactone 25 mg tablet 25 mg PO DAILY 01/03/18 05/15/24 History hydrocortisone 1 % topical cream 1 applic topical TID PRN rash 03/23/19 05/15/24 Rx #14.2 grams bupropion HCl 300 mg 24 hr tablet, 300 mg PO DAILY 12/06/21 05/15/24 History extended release amitriptyline 25 mg tablet 25 mg PO QHS #30 tabs 05/15/24 05/15/24 Rx zolmitriptan 5 mg tablet See Rx Instructions PO .COMPLEX 05/15/24 05/15/24 Rx #12 tabs METHODS: An 18-channel digitized electroencephalogram was recorded in the ambulatory setting with video. The 10/20 international system of electrode placement was used and bipolar and referential electrode montages were recorded. In addition to EEG the patient was monitored for EKG and by video. Activation procedures of photic stimulation and hyperventilation were performed if applicable. The duration of the recording was ~16.5 hours. DESCRIPTION OF EEG: Waking background activity: During maximal wakefulness an 11-Hz posterior b ackground rhythm was present which was well-modulated, symmetrical, reactive to eye opening, and of moderate voltage. Faster frequencies were present in the bilateral anterior head regions. There was a normal anterior-posterior voltage gradient. Drowsy and sleeping background activity: During drowsiness, there was attenuation of the posterior dominant background rhythm and vertex waves. Normal stage II and III sleep was present with symmetrical sleep spindles, K- complexes, and vertex waves with slowing of the background rhythm to delta/theta frequencies. REM sleep manifested by rapid lateral eye movements and faster background rhythms was recorded. Arousal was unremarkable. Interictal abnormalities: none. Ictal findings: No events recorded. Activating Procedures: Photic stimulation and hyperventilation were performed but unfortunately not captured on EEG due to technical issues with the device. EKG: EKG revealed normal sinus rhythm. INTERPRETATION: This long-term EEG is normal during the awake and sleep states. PRIOR EEG: none CLINICAL CORRELATION: No focal regions of cerebral dysfunction or epileptiform activity was present. Epilepsy remains a clinical diagnosis and a normal EEG does not rule out epilepsy. Clinical correlation is advised. Cecy Castillo MD Date of service: 06/14/24
== END 2024-06-14 01:11 | disposition home or self-care (01) ==
LOC: RT 01:10
PROVIDERS: PCP Family Medicine; Visit Provider Psychiatry & Neurology Neurology
DX: R40.4 Transient alteration of awareness (principal)
CPT/HCPCS: 95714; 95720

== ENCOUNTER 2024-10-16 08:19 | Outpatient (REF) | payer OTHER, SELFPAY ==
[2024-10-16 14:26] LABS: Abs Immature Grans 0.05 10^3/uL (0.0-0.06); Absolute Basophil Count 0.06 10^3/uL (0.0-0.2); Absolute Eosinophil Count 0.14 10^3/uL (0.0-0.7); Absolute Lymphocyte Count 4.49 10^3/uL (1.2-3.4); Absolute Monocyte Count 0.46 10^3/uL (0.1-0.8); Basophils % 0.5 %; Eosinophils % 1.2 %; HCT 44.7 % (36.0-46.0); HGB 14.9 g/dL (11.2-15.7); Immature Grans % 0.4 %; Lymphocytes % 39.3 %; MCHC 33.3 % (32.0-36.0); MCV 93 fL (80-95); MPV 8.8 fL (8.0-11.0); Neutrophils % 54.6 %; Platelet Count 399 10^3/uL (130-400); RBC 4.81 10^6/uL (3.93-5.22); RDW 11.3 % (11.7-14.6); RDW-SD 38.5 fL; WBC 11.42 10^3/uL (4.4-10.8)
[2024-10-16 14:27] LABS: Absolute Neutrophil Count 6.24 10^3/uL (1.2-6.7)
[2024-10-16 14:37] LABS: Iron 123 ug/dL (50-170); Total Iron Binding Capacity 344 ug/dL (250-450); Transferrin Sat 36 % (15-50)
[2024-10-16 14:57] LABS: ALT 29 U/L (14-59); AST 18 U/L (15-37); Albumin 3.7 g/dL (3.4-5.0); Alkaline Phosphatase 111 U/L (46-116); Anion Gap 10.5 mmol/L (3-11); BUN 12 mg/dL (7-18); Bilirubin, Total 0.5 mg/dL (0.2-1.0); CO2 25.5 mmol/L (21.0-32.0); CREATININE 0.9 mg/dL (0.55-1.02); Calcium 9.4 mg/dL (8.5-10.1); Calculated LDL 150 mg/dL (<100); Chloride 103 mmol/L (98-107); Cholesterol 223 mg/dL (<200); Estimated GFR 86.57 (mL/min/1.73m2); Ferritin 107 ng/mL (8-252); Glucose 79 mg/dL (74-106); HDL Cholesterol 48 mg/dL (>or=50); Potassium 4.1 mmol/L (3.5-5.1); Sodium 139 mmol/L (136-145); Total Protein 7.7 g/dL (6.4-8.2); Triglyceride 128 mg/dL (<150)
[2024-10-17 08:35] LABS: Transferrin 262 mg/dL (201-352)
[2024-10-19 00:53] LABS: Anaplasma phagocytophilum Negative (Negative); B. miyamotoi PCR Negative (Negative); Babesia divergens/MO-1 Negative (Negative); Babesia duncani Negative (Negative); Babesia microti Negative (Negative); Ehrlichia chaffeensis Negative (Negative); Ehrlichia ewingii/canis Negative (Negative); Ehrlichia muris eauclairensis Negative (Negative)
== END 2024-10-16 08:20 | disposition home or self-care (01) ==
LOC: NCHCN 08:19
PROVIDERS: PCP Family Medicine; Visit Provider Nurse Practitioner Family
DX: I10 Essential (primary) hypertension (principal); R53.81 Other malaise
CPT/HCPCS: 80053; 80061; 87798; 82728; 83540; 83550; 84443; 84466; 85025